=== PATIENT | male | born 1995 | race Two or more races ===

== ENCOUNTER 2018-02-03 14:25 | Emergency (ER) | payer SELFPAY ==
[~2018-02-03] VITALS: Ht 180.3 cm; Wt 82.0 kg
[2018-02-03 14:32] VITALS: BP 135/79
== END 2018-02-03 18:29 | disposition left against medical advice (07) ==
LOC: ER 14:25
DX: M54.9 Dorsalgia, unspecified (principal); Z53.21 Procedure and treatment not carried out due to patient leaving prior to being seen by health care provider